=== PATIENT | female | born 1985 | race American Indian/Alaskan Native ===

== ENCOUNTER 2019-07-22 00:48 | Emergency (ER) | payer MEDICAID ==
[2019-07-22 01:03] VITALS: BP 114/79
[2019-07-22] MEDS ORDERED: KETOROLAC 60 MG/2 ML INJ IM ONE (01:08)
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
== END 2019-07-22 07:13 | disposition home or self-care (01) ==
LOC: ED 00:48
DX: S06.0X9A Concussion with loss of consciousness of unspecified duration, initial encounter (principal); S20.219A Contusion of unspecified front wall of thorax, initial encounter; S00.83XA Contusion of other part of head, initial encounter; S16.1XXA Strain of muscle, fascia and tendon at neck level, initial encounter; F10.920 Alcohol use, unspecified with intoxication, uncomplicated; G43.909 Migraine, unspecified, not intractable, without status migrainosus; J45.909 Unspecified asthma, uncomplicated; Z98.890 Other specified postprocedural states; Z79.899 Other long term (current) drug therapy; Z88.6 Allergy status to analgesic agent; Y08.89XA Assault by other specified means, initial encounter; Y93.89 Activity, other specified; Y92.89 Other specified places as the place of occurrence of the external cause; Y99.8 Other external cause status
CPT/HCPCS: 36415; 70450; 70486; 71250; 72125; 82962; 96372; 99284; J1885; 80320; G0480